=== PATIENT | male | born 1955 | race Caucasian/White ===

== ENCOUNTER → 2020-01-10 | Day surgery (SDC) | payer MEDICARE, OTHER ==
[~2020-01-10] MED LIST: ACETAMINOPHEN 325 MG TABLET PO PRN; ALBU2.5V8 IH; ALBUTEROL SULFATE 2.5 MG/3 ML NEBU. NEB PRN; ARMO150T4 PO; ATOR20TA PO; ATROPINE 0.5 MG/5 ML DISP.SYRIN. IV PRN; CLOP75TA57 PO; EMPA25TA PO; EXEN2AUT SQ; HYDR-2769 PO; INSU100I13 SQ; INSU100V31 SQ; IV RINGERS SOLUTION,LACTATED 1,000 ML IV SCH; LISI-338 PO; LISI10TA2 PO; METF500T16 PO; NIAC10002 PO; ONDANSETRON PF 4 MG/2 ML VIAL. IV PRN; PHENOL ORAL SPRAY 177ML BOTTLE. MM PRN; PROPOFOL 40 ML IV ONE; VARD10TA4 PO; diphenhydrAMINE 50 MG/ML VIAL IV PRN
[2020-01-10 08:53] VITALS: BP 131/78
--- NOTE | 2020-01-11 17:10 | PATHOLOGY ---
[facility] Accession Number: [id number] . 01 Material submitted: . colon - TRANSVERSE POLYP. Modifiers: transverse . 01 Clinical history: . None provided . 02 Diagnosis: Colon biopsies, transverse colon polyp: - Tubular adenoma. (JPM:josie; 01/11/2020) QMS 01/11/2020 1331 Local . 02 Comment: There is no high grade dysplasia or evidence of malignancy. . 02 Electronically signed: . Wali Nava MD, Pathologist NPI- [id number] . 01 Gross description: . The specimen is received in formalin, labeled "Thee Zayasld, transverse polyp". Received are three segments of pale bowman soft tissue ranging in size from 0.3 to 0.4 cm in maximum dimensions. The specimen is submitted entirely in cassette A1. ([facility]; 01/10/2020) QA/QA 01/10/2020 1647 Local . 02 Pathologist provided ICD-10: D12.3 . 02 CPT . 392468 Specimen Comment: A courtesy copy of this report has been sent to [phone] Specimen Comment: Report sent to Performed at: 01 [facility] [address] [facility] [address], [place] [id number] MD Campbell Landin MD Phone: [phone] Performed at: 02 [facility] [address] [place], [place] [id number] MD Wali Nava MD Phone: [phone]
== END ==
LOC: SURG 06:47
PROVIDERS: ATTEND Emergency Medicine
DX: Z12.11 Encounter for screening for malignant neoplasm of colon (principal); D12.3 Benign neoplasm of transverse colon; K57.30 Diverticulosis of large intestine without perforation or abscess without bleeding; I10 Essential (primary) hypertension; E78.00 Pure hypercholesterolemia, unspecified; G47.33 Obstructive sleep apnea (adult) (pediatric); Z98.890 Other specified postprocedural states
CPT/HCPCS: 45385; 82947; 88305; J2704; J7120

== ENCOUNTER → 2020-04-03 | Outpatient (CLI) | payer MEDICARE, OTHER ==
[2020-01-10 08:53] VITALS: BP 131/78
[~2020-04-03] MED LIST changes: -ACETAMINOPHEN 325 MG TABLET PO PRN; -ALBUTEROL SULFATE 2.5 MG/3 ML NEBU. NEB PRN; -ATROPINE 0.5 MG/5 ML DISP.SYRIN. IV PRN; -IV RINGERS SOLUTION,LACTATED 1,000 ML IV SCH; -ONDANSETRON PF 4 MG/2 ML VIAL. IV PRN; -PHENOL ORAL SPRAY 177ML BOTTLE. MM PRN; -PROPOFOL 40 ML IV ONE; -diphenhydrAMINE 50 MG/ML VIAL IV PRN
== END | disposition home or self-care (01) ==
LOC: LAB 13:05
PROVIDERS: ATTEND Registered Nurse
DX: Z11.59 Encounter for screening for other viral diseases (principal)
CPT/HCPCS: C9803; U0003

== ENCOUNTER → 2020-04-10 | Day surgery (SDC) | payer MEDICARE, OTHER ==
[~2020-04-10] MED LIST changes: +IV RINGERS SOLUTION,LACTATED 1,000 ML IV SCH; +ONDANSETRON PF 4 MG/2 ML VIAL. IV PRN; +PROPOFOL 10,000 MCG/ML (20ML) VIAL IV ONE
[2020-04-10 12:07] VITALS: BP 116/69
--- NOTE | 2020-04-11 15:07 | PATHOLOGY ---
[facility] Accession Number: [id number] . 01 Material submitted: . rectum - RECTAL POLYP . 02 Diagnosis: Colon biopsies, rectal polyp: - Hyperplastic polyp. ([facility] 04[facility]) [facility] 04/11/2020 1252 Local . 02 Comment: There are no adenomatous changes or evidence of malignancy. ([facility] 04/11/2020) . 02 Electronically signed: . Wali Nava MD, Pathologist NPI- [id number] . 01 Gross description: . The specimen is received in formalin, labeled "Gearld, Thee, rectal polyp" and consists of 2 fragments of pink-bowman tissue measuring 0.4 x 0.3 x 0.2 cm in aggregate which are entirely submitted in A1. ([facility]; 04/10/2020) JFQ/JFQ 04/10/2020 1917 Local . 02 Pathologist provided ICD-10: K62.1 . 02 CPT . 245808 Specimen Comment: A courtesy copy of this report has been sent to [phone] Specimen Comment: [phone] Specimen Comment: Report sent to / DR MARTE Performed at: 01 [facility] [address] [facility] [address], [place] [id number] MD Campbell Landin MD Phone: [phone] Performed at: 02 [facility] [place] [address] [place], [place] [id number] MD Wali Nava MD Phone: [phone]
== END ==
LOC: SURG 09:15
PROVIDERS: ATTEND Emergency Medicine
DX: Z12.11 Encounter for screening for malignant neoplasm of colon (principal); K62.1 Rectal polyp; K57.30 Diverticulosis of large intestine without perforation or abscess without bleeding; I10 Essential (primary) hypertension; J43.9 Emphysema, unspecified; E11.9 Type 2 diabetes mellitus without complications; G47.30 Sleep apnea, unspecified; Z87.891 Personal history of nicotine dependence; Z86.73 Personal history of transient ischemic attack (TIA), and cerebral infarction without residual deficits; Z87.39 Personal history of other diseases of the musculoskeletal system and connective tissue; Z86.010 Personal history of colon polyps; Z72.89 Other problems related to lifestyle; Z79.84 Long term (current) use of oral hypoglycemic drugs
CPT/HCPCS: 45380; 82947; 88305; J2704; J7120